=== PATIENT | female | born 1955 | race American Indian/Alaskan Native ===

== ENCOUNTER 2016-09-13 15:12 | Emergency (ER) | payer OTHER ==
[2016-09-13] MEDS ORDERED: TRIPLE ANTIBIOTIC TP ONE (16:25)
[2016-09-13] MEDS ORDERED: NACL 0.9% IR ONE (16:25)
[2016-09-13] MEDS ORDERED: XYLOCAINE 1% 20 mL INFILTRATI ONE (16:25)
[2016-09-13] MEDS ORDERED: NORCO 5/325 PO ONE (16:25)
--- NOTE | 2016-09-13 16:35 | Emergency Department Report ---
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 PT c/o laceration. PT states she knows her finger is not broken. PT states her TD vaccine is UTD. Onset/Timin -: hour(s) Location: other (L index finger ) Extremity Location: Left: Hand (index finger ) Patient Tetanus UTD: Yes Context: accidental Associated Symptoms: denies: loss of feeling/numbness, suspect foreign body present, unable to move injured part Treatments Prior to Arrival: bandage - Related Data Allergies Allergy/AdvReac Type Severity Reaction Status Date / Time No Known Allergies Allergy Unverified 09/13/16 15:39 ED Review of Systems ROS: Stated complaint: CLOSED CAR DOOR ON RING FINGER Other details as noted in HPI Comment: All other systems reviewed and negative Musculoskeletal: as per HPI Skin: other (laceration ). denies: change in color ED Past Medical Hx - Past Medical History Hx Hypertension: Yes Hx Diabetes: No Additional medical history: MVP - Surgical History Additional Surgical History: HYSTERECTOMY. ABSCESS REMOVED UNDER RIGHT BREAST - Social History Smoking Status: Never Smoker Substance Use Type: None ED Physical Exam - General Limitations: No Limitations General appearance: alert, in no apparent distress - Head Head exam: Present: atraumatic, normocephalic - Eye Eye exam: Present: normal appearance, PERRL. Absent: conjunctival injection - Neck Neck exam: Present: normal inspection, full ROM - Respiratory Respiratory exam: Absent: respiratory distress, wheezes - Cardiovascular Cardiovascular Exam: Present: regular rate, normal rhythm - Extremities Exam Extremities exam: Present: full ROM, tenderness, normal capillary refill. Absent: joint swelling - Expanded Upper Extremity Exam Left Hand Wrist exam: Present: full ROM, tenderness, swelling, laceration (to the ant aspect of the L index finger ), other (contusion ). Absent: ecchymosis Vascular: Present: normal capillary refill, radial pulse. Absent: pulse deficit radial art ED Course Vital Signs 09/13/16 15:30 Temperature 98.2 F Pulse Rate 59 L Respiratory 17 Rate Blood Pressure 149/77 O2 Sat by Pulse 100 Oximetry - Reevaluation(s) Reevaluation #1: 09/13/16 17:44 PT tolerated laceration repair well. Agrees for repeat XR. Reevaluation #2: 09/13/16 19:00 PT aware of repeat XR results. PT has no questions at this time. - Laceration /Wound Repair Left Distal Finger Wound Location: upper extremity (L ant index finger ) Wound Length (cm): 1 Wound's Depth, Shape: superficial, linear Wound Explored: no foreign body removed (no fb seen) Irrigated w/ Saline (ccs): 200 Betadine Prep?: Yes Anesthesia: 1% Lidocaine Volume Anesthetic (ccs): 6 Wound Debrided: minimal Wound Repaired With: sutures Suture Size/Type: 4:0 Number of Sutures: 2 Layer Closure?: No Sterile Dressing Applied?: Yes - Pulse Oximetry Interpretation Digit-Finger Initial Pulse Oximetry Readin Actions Taken: none ED Medical Decision Making - Radiology Data Radiology results: report reviewed no fx on repeat xr - Differential Diagnosis fracture, crush injury, laceration Critical care attestation.: If time is entered above; I have spent that time in minutes in the direct care of this critically ill patient, excluding procedure time. ED Disposition Clinical Impression: Laceration of left index finger Crush injury to finger Qualifiers: Encounter type: initial encounter Qualified Code(s): S67.10XA - Crushing injury of unspecified finger(s), initial encounter Disposition: DISCHARGED TO HOME OR SELFCARE Is pt being admited?: No Does the pt Need Aspirin: No Condition: Stable Instructions: Laceration (ED), Suture Care (ED), Finger Laceration (ED) Additional Instructions: Return to ED in 7 days for suture removal Referrals: PRIMARY CARE, [Primary Care Provider] - 3-5 Days Time of Disposition: 19:06
--- NOTE | 2016-09-13 17:29 | XRay Report ---
FINAL REPORT EXAM: XR FINGER(S) 2 LT HISTORY: LT FINGER INJURY 2ND DIGIT, SLAMMED IN DOOR TECHNIQUE: 3 views of the left index finger PRIORS: None. FINDINGS: There is subtle double density in the cortex of the distal tuft of the distal phalanx visualized only on the lateral view. This may be motion artifact. The differential includes subtle avulsion fracture, nondisplaced. The other bones are intact. There is no dislocation. IMPRESSION: There is subtle double density in the cortex of the distal tuft of the distal phalanx visualized only on the lateral view. This may be motion artifact. The differential includes subtle avulsion fracture, nondisplaced. Correlate with site of maximal tenderness. If clinical suspicion remains high for avulsion fracture in this region, consider repeating the lateral view with focus on the distal phalanx
--- NOTE | 2016-09-13 18:52 | XRay Report ---
FINAL REPORT EXAM: XR FINGER(S) 1V LT HISTORY: repeat lateral view, attention distal - see report , left index finger injury, slammed in door TECHNIQUE: 2 lateral views of the left index finger PRIORS: Left index finger radiographs 09/13/2016 FINDINGS: First lateral view again demonstrates motion artifact, this time with blurred cortex noted dorsally instead of volarly. Second view also appears to contain motion artifact again with blurred cortex volarly instead of dorsally. The summation of both view suggests absence of fracture. IMPRESSION: No definite evidence of fracture when accounting for motion artifact
[2016-09-13 19:51] VITALS: BP 119/68
== END 2016-09-13 19:52 | disposition home or self-care (01) ==
LOC: ED 15:12
DX: S61.211A Laceration without foreign body of left index finger without damage to nail, initial encounter (principal); S67.10XA Crushing injury of unspecified finger(s), initial encounter; I10 Essential (primary) hypertension; W23.0XXA Caught, crushed, jammed, or pinched between moving objects, initial encounter; Y93.89 Activity, other specified; Y99.9 Unspecified external cause status; Y92.89 Other specified places as the place of occurrence of the external cause
CPT/HCPCS: A6250